=== PATIENT | female | born 1990 | race Caucasian/White ===

== ENCOUNTER 2016-06-19 16:16 | Emergency (ER) | payer OTHER ==
[~2016-06-19] VITALS: Wt 45.4 kg
[~2016-06-19 16:16] MED LIST: ANAPROX DS550 MG PO; ANTIBIOTIC O500 U/GM TP; AUGMENTIN 500 M1 TAB PO; AUGMENTIN 875-875 MG PO; BACTRIM DS 8001 TA1 PO; CATAFLAM50 MG PO; CIPROFLOXACIN500 MG PO; CLEOCIN HCL150 MG PO; CLEOCIN150 MG PO; Catapres-Tts 10.1 MG PO; DARVOCET N 1001 TAB PO; DAYPRO600 M1 PO; DOXYCYCLINE MO100 MG PO; HYDROCODONE BIT1 T11 PO; IBU600 MG PO; KEFLEX500 MG PO; MOTRIN600 MG PO; MOTRIN800 MG PO; NKHM; Peridex 473 ML473 ML PO; SEPTRA DS 800 M1 TAB PO; TRAMADOL HCL50 MG PO; VICODIN 5/500 505 MG PO; ZOFRAN4 MG PO; Zofran4 MG PO
[2016-06-19] MEDS ORDERED: ARTHRITIS PAI42.5 GM TP (16:22)
[2016-06-19] MEDS ORDERED: TYLENOL325 M1 PO (16:22)
[2016-06-19] MEDS ORDERED: SEROQUEL100 MG PO (16:22)
[2016-06-19] MEDS ORDERED: TEFLARO600 MG IV (16:23)
[2016-06-19 16:41] LABS: BASO # 0.1 10*3/uL (0.0-0.1); BASO % 0.5 % (0.0-1.0); EOS # 0.6 10*3/uL (0.0-0.4); EOS % 3.1 % (1.0-4.0); HEMATOCRIT 24.5 % (37.0-47.0); HEMOGLOBIN 7.5 g/dl (12.0-16.0); IG # 0.3 10*3/uL (0.0-0.1); LYMPH # 3.2 10*3/uL (1.3-4.4); LYMPH % 18.2 % (27.0-41.0); MEAN CELL VOLUME 94.2 fl (81.0-99.0); MEAN CORPUSCULAR HGB 28.8 pg (27.0-31.0); MEAN CORPUSCULAR HGB CONC 30.6 g/dl (33.0-37.0); MEAN PLATELET VOLUME 10.4 fl (9.6-12.3); MONO # 1.3 10*3/uL (0.1-1.0); MONO % 7.3 % (3.0-9.0); NEUT # 12.2 10*3/uL (2.3-7.9); NEUT % 69.3 % (47.0-73.0); PLATELET COUNT AUTOMATED 221 10*3/uL (130-400); RED CELL DISTRI WIDTH 18.3 % (0-14.5); WHITE BLOOD COUNT 17.6 10*3/uL (4.8-10.8)
[2016-06-19 17:01] LABS: BILIRUBIN NEGATIVE (NEGATIVE); BLOOD 3+ (NEGATIVE); CLARITY SL CLOUDY (CLEAR); COLOR YELLOW (YELLOW); GLUCOSE TRACE (NEGATIVE); KETONE NEGATIVE (NEGATIVE); LEUKO ESTERASE NEGATIVE (NEGATIVE); NITRITE NEGATIVE (NEGATIVE); PH 5.5 (5.0-9.0); PROTEIN 2+ (NEGATIVE); SPECIFIC GRAVITY >= 1.030 (1.005-1.030); UROBILINOGEN 0.2 E.U./dl (0.2-1.0)
[2016-06-19 17:02] LABS: ALBUMIN 2.7 gm/dl (3.1-4.5); BILIRUBIN, TOTAL 0.3 mg/dl (0.2-1.0); BUN 28 mg/dl (7-24); CARBON DIOXIDE 18 mmol/L (21-32); CHLORIDE 109 mmol/L (98-107); EST GLOM FILT AFRICAN AMERICAN > 60 ml/min; GLUCOSE 121 mg/dL (65-99); MAGNESIUM 1.9 mg/dL (1.5-2.1); POTASSIUM 4.5 mmol/L (3.5-5.1); SGOT/AST 15 IU/L (3-35); SGPT/ALT 19 U/L (12-78); SODIUM 140 mmol/L (136-145); TOTAL PROTEIN 8.2 gm/dL (6.4-8.2)
[2016-06-19 17:03] LABS: ALKALINE PHOSPHATASE 122 U/L (45-117); TROPONIN I < 0.015 ng/ml (<0.045)
[2016-06-19 17:18] LABS: URINE AMPHETAMINES < 1000 (1000ng/ml); URINE BARBITURATES < 200 (200ng/ml); URINE COCAINE > 300 (300ng/ml)
[2016-06-19 17:23] LABS: RBC 16-20 rbc/hpf (0-2)
[2016-06-19 17:24] LABS: BACTERIA 1+; URINE REFLEX COMMENT YES (NO); WBC 16-20 wbc/hpf (0-5); YEAST 3+
[2016-06-20] MEDS ORDERED: CYMBALTA60 MG PO (16:16)
[2016-06-20] MEDS ORDERED: DULCOLAX10 M1 RC (16:17)
[2016-06-20] MEDS ORDERED: VITAMIN D5000 I3 PO (16:18)
[2016-06-20] MEDS ORDERED: FLEET ADULT ENEM1 EA R (16:19)
[2016-06-20] MEDS ORDERED: NEURONTIN300 MG PO (16:20)
[2016-06-20] MEDS ORDERED: CYCLOBENZAPRINE5 M3 PO (16:20)
[2016-06-20] MEDS ORDERED: LOPRESSOR25 MG PO (16:21)
[2016-06-20] MEDS ORDERED: MICONAZOLE1 POW ×2 (16:22→16:25)
[2016-06-20] MEDS ORDERED: MOM30 M1 PO (16:26)
[2016-06-20] MEDS ORDERED: NAPROXEN375 MG PO (16:29)
== END 2016-06-19 17:44 | disposition other institution (70) ==
LOC: ED 16:16
PROVIDERS: Nurse Practitioner Family
DX: T40.1X1A Poisoning by heroin, accidental (unintentional), initial encounter (principal); F14.90 Cocaine use, unspecified, uncomplicated; F17.200 Nicotine dependence, unspecified, uncomplicated; Z98.890 Other specified postprocedural states; Z79.899 Other long term (current) drug therapy; Z88.6 Allergy status to analgesic agent; Y92.9 Unspecified place or not applicable

== ENCOUNTER → 2016-06-20 | Outpatient (CLI) | payer OTHER ==
[2016-06-20] VITALS (8 sets, daily range): BP systolic 130–158; BP diastolic 78–88
[~2016-06-20] MED LIST changes: +ARTHRITIS PAI42.5 GM TP; +CYCLOBENZAPRINE5 M3 PO; +CYMBALTA60 MG PO; +DULCOLAX10 M1 RC; +FLEET ADULT ENEM1 EA R; +LOPRESSOR25 MG PO; +MICONAZOLE1 POW; +MOM30 M1 PO; +NAPROXEN375 MG PO; +NEURONTIN300 MG PO; +SEROQUEL100 MG PO; +TEFLARO600 MG IV; +TYLENOL325 M1 PO; +VITAMIN D5000 I3 PO
== END | disposition home or self-care (01) ==
LOC: TRNFUSION 11:47
DX: R79.89 Other specified abnormal findings of blood chemistry (principal); D63.8 Anemia in other chronic diseases classified elsewhere

== ENCOUNTER 2016-08-08 21:40 | Inpatient (IN) | payer OTHER ==
[2016-08-08] VITALS (11 sets, daily range): BP systolic 58–81; BP diastolic 0–44
[~2016-08-08] VITALS: Ht 152.4 cm; Wt 49.4 kg
[2016-08-08 22:56] LABS: HEMATOCRIT 34.4 % (37.0-47.0); HEMOGLOBIN 11.4 g/dl (12.0-16.0); MEAN CELL VOLUME 84.1 fl (81.0-99.0); MEAN CORPUSCULAR HGB 27.9 pg (27.0-31.0); MEAN CORPUSCULAR HGB CONC 33.1 g/dl (33.0-37.0); PLATELET COUNT AUTOMATED 51 10*3/uL (130-400); RED BLOOD COUNT 4.09 10*6/uL (4.10-5.10); RED CELL DISTRI WIDTH 15.4 % (0-14.5); WHITE BLOOD COUNT 19.6 10*3/uL (4.8-10.8)
[2016-08-08 23:05] LABS: INTERNATIONAL NORM RATIO 1.6 (2.0-3.5); PROTHROMBIN TIME 17.4 SECONDS (9.0-12.4)
[2016-08-08 23:16] LABS: ALKALINE PHOSPHATASE 109 U/L (45-117); B-hCG (QUALITATIVE) NEGATIVE (NEGATIVE); BILIRUBIN, TOTAL 1.7 mg/dl (0.2-1.0); BUN 41 mg/dl (7-24); CARBON DIOXIDE 19 mmol/L (21-32); CHLORIDE 99 mmol/L (98-107); EST GLOM FILT AFRICAN AMERICAN 28 ml/min; GLUCOSE 108 mg/dL (65-99); MAGNESIUM 1.3 mg/dL (1.5-2.1); POTASSIUM 3.5 mmol/L (3.5-5.1); SGOT/AST 22 IU/L (3-35); SGPT/ALT 42 U/L (12-78); SODIUM 131 mmol/L (136-145); TOTAL PROTEIN 7.2 gm/dL (6.4-8.2)
[2016-08-08 23:17] LABS: TROPONIN I < 0.015 ng/ml (<0.045)
[2016-08-08 23:21] LABS: LYMPHOCYTE # 0.4 10*3/uL (1.3-4.4); METAMYELOCYTES 1 % (0-0); MONOCYTE # 0.8 10*3/uL (0.1-1.0); NEUTROPHIL # 18.2 10*3/uL (2.3-7.9); NEUTROPHILS 93 % (47-73); TOTAL CELLS COUNTED 100 #CELLS
[2016-08-08 23:22] LABS: VACUOLATION OF NEUTROPHILS SLIGHT
[2016-08-08 23:23] LABS: PLATELET SUFFICIENCY LOW (NORMAL)
[2016-08-08 23:35] LABS: ALBUMIN 2.7 gm/dl (3.1-4.5)
[2016-08-08] MEDS ORDERED: NEURONTIN100 MG PO (23:41)
[2016-08-08] MEDS ORDERED: LEVOTHYROXINE0.05 MG PO (23:43)
[2016-08-08] MEDS ORDERED: AMRIX15 MG PO (23:43)
[2016-08-08] MEDS ORDERED: METHADONE HCL10 MG PO (23:43)
[2016-08-08 23:55] LABS: BILIRUBIN 1+ (NEGATIVE); BLOOD 3+ (NEGATIVE); CLARITY CLOUDY (CLEAR); COLOR YELLOW (YELLOW); GLUCOSE NEGATIVE (NEGATIVE); KETONE TRACE (NEGATIVE); LEUKO ESTERASE 2+ (NEGATIVE); NITRITE NEGATIVE (NEGATIVE); PROTEIN 3+ (NEGATIVE); SPECIFIC GRAVITY 1.025 (1.005-1.030); UROBILINOGEN 0.2 E.U./dl (0.2-1.0)
[2016-08-08 23:57] LABS: BACTERIA 4+; EPITHELIAL CELLS 0-2; URINE REFLEX COMMENT YES (NO)
[2016-08-09] VITALS (30 sets, daily range): BP systolic 58–143; BP diastolic 0–88
[2016-08-09 00:15] LABS: URINE AMPHETAMINES < 1000 (1000ng/ml); URINE BARBITURATES < 200 (200ng/ml); URINE COCAINE < 300 (300ng/ml)
[2016-08-09 00:52] LABS: LA>2 REFLEX 2 HR DRAW NOW
[2016-08-09 07:09] LABS: HEMATOCRIT 31.3 % (37.0-47.0); HEMOGLOBIN 10.5 g/dl (12.0-16.0); MEAN CELL VOLUME 85.3 fl (81.0-99.0); MEAN CORPUSCULAR HGB 28.6 pg (27.0-31.0); MEAN CORPUSCULAR HGB CONC 33.5 g/dl (33.0-37.0); MEAN PLATELET VOLUME 10.9 fl (9.6-12.3); PLATELET COUNT AUTOMATED 38 10*3/uL (130-400); RED BLOOD COUNT 3.67 10*6/uL (4.10-5.10); RED CELL DISTRI WIDTH 15.4 % (0-14.5); WHITE BLOOD COUNT 14.8 10*3/uL (4.8-10.8)
[2016-08-09 07:17] LABS: POTASSIUM 3.2 mmol/L (3.5-5.1)
[2016-08-09 07:25] LABS: LYMPHOCYTE # 0.1 10*3/uL (1.3-4.4); METAMYELOCYTES 2 % (0-0); MONOCYTE # 0.7 10*3/uL (0.1-1.0); NEUTROPHIL # 13.6 10*3/uL (2.3-7.9); NEUTROPHILS 92 % (47-73); TOTAL CELLS COUNTED 100 #CELLS
[2016-08-09 07:26] LABS: BURR CELLS FEW; PLATELET SUFFICIENCY LOW (NORMAL); TOXIC GRANULATION SLIGHT; VACUOLATION OF NEUTROPHILS MODERATE
[2016-08-09 13:33] LABS: LDH 239 U/L (84-246)
[2016-08-09 13:35] LABS: CKMB < 0.5 ng/ml (0.5-3.6); TROPONIN I < 0.015 ng/ml (<0.045)
[2016-08-12 00:04] LABS: FINAL RESULT Final report (.)
== END 2016-08-09 14:31 | disposition short-term general hospital (02) | DRG 871 ==
LOC: ED 21:40 → EDHOLD 08-09 08:09 → ICCU 08-09 08:09
PROVIDERS: Emergency Medicine Emergency Medical Services; Internal Medicine
DX: A41.89 Other specified sepsis (principal); R65.21 Severe sepsis with septic shock; N17.0 Acute kidney failure with tubular necrosis; E43 Unspecified severe protein-calorie malnutrition; A04.7 Enterocolitis due to Clostridium difficile; R56.9 Unspecified convulsions; I38 Endocarditis, valve unspecified; F11.20 Opioid dependence, uncomplicated; R34 Anuria and oliguria; E87.1 Hypo-osmolality and hyponatremia; D64.9 Anemia, unspecified; G62.9 Polyneuropathy, unspecified; G89.29 Other chronic pain; E03.9 Hypothyroidism, unspecified; R73.9 Hyperglycemia, unspecified; E83.42 Hypomagnesemia; E87.6 Hypokalemia; Z90.49 Acquired absence of other specified parts of digestive tract; Z88.6 Allergy status to analgesic agent; Z79.899 Other long term (current) drug therapy; Z79.1 Long term (current) use of non-steroidal anti-inflammatories (NSAID); Z68.20 Body mass index [BMI] 20.0-20.9, adult

== ENCOUNTER → 2016-10-18 | Outpatient (CLI) | payer OTHER ==
[~2016-10-18] MED LIST changes: +AMRIX15 MG PO; +LEVOTHYROXINE0.05 MG PO; +METHADONE HCL10 MG PO; +NEURONTIN100 MG PO
== END | disposition home or self-care (01) ==
LOC: CARD 16:00 → LAB 16:04
DX: R78.81 Bacteremia (principal); R76.8 Other specified abnormal immunological findings in serum

== ENCOUNTER → 2016-10-27 | Outpatient (CLI) | payer OTHER | END | disposition home or self-care (01) | LOC: LAB 16:12 | DX: Z53.9 Procedure and treatment not carried out, unspecified reason (principal) ==

== ENCOUNTER → 2016-11-15 | Outpatient (CLI) | payer OTHER | END | disposition home or self-care (01) | LOC: LAB 12:09 | DX: R78.81 Bacteremia (principal); R76.8 Other specified abnormal immunological findings in serum ==

== ENCOUNTER 2017-01-07 20:18 | Emergency (ER) | payer OTHER ==
[~2017-01-07] VITALS: Wt 51.3 kg
[2017-01-07 20:36] LABS: BILIRUBIN NEGATIVE (NEGATIVE); BLOOD 3+ (NEGATIVE); CLARITY SL CLOUDY (CLEAR); COLOR YELLOW (YELLOW); GLUCOSE NEGATIVE (NEGATIVE); KETONE NEGATIVE (NEGATIVE); LEUKO ESTERASE TRACE (NEGATIVE); NITRITE NEGATIVE (NEGATIVE); SPECIFIC GRAVITY >= 1.030 (1.005-1.030)
[2017-01-07 20:48] LABS: BACTERIA 2+; RBC 31-40 rbc/hpf (0-2)
[2017-01-07 21:16] LABS: ALBUMIN 3.6 gm/dl (3.1-4.5); ALKALINE PHOSPHATASE 87 U/L (45-117); BUN 17 mg/dl (7-24); CHLORIDE 110 mmol/L (98-107); CREATININE 0.88 mg/dL (0.55-1.02); LIPASE 134 U/L (73-393); POTASSIUM 4.4 mmol/L (3.5-5.1); SGOT/AST 23 IU/L (3-35); SGPT/ALT 23 U/L (12-78); SODIUM 140 mmol/L (136-145); TOTAL PROTEIN 7.9 gm/dL (6.4-8.2)
[2017-01-07] MEDS ORDERED: MACROBID100 M1 PO (21:39)
== END 2017-01-07 21:42 | disposition home or self-care (01) ==
LOC: ED 20:18
PROVIDERS: Physician Assistant
DX: O23.41 Unspecified infection of urinary tract in pregnancy, first trimester (principal); Z91.09 Other allergy status, other than to drugs and biological substances; Z95.2 Presence of prosthetic heart valve; Z90.49 Acquired absence of other specified parts of digestive tract; Z96.612 Presence of left artificial shoulder joint; Z96.611 Presence of right artificial shoulder joint; O99.330 Smoking (tobacco) complicating pregnancy, unspecified trimester; F17.200 Nicotine dependence, unspecified, uncomplicated

== ENCOUNTER 2017-06-06 05:02 | Emergency (ER) | payer OTHER ==
[~2017-06-06] VITALS: Ht 152.4 cm; Wt 52.2 kg
[~2017-06-06 05:02] MED LIST changes: +MACROBID100 M1 PO
== END 2017-06-06 05:45 | disposition home or self-care (01) ==
LOC: ED 05:02
DX: Z20.2 Contact with and (suspected) exposure to infections with a predominantly sexual mode of transmission (principal); F17.200 Nicotine dependence, unspecified, uncomplicated; F10.10 Alcohol abuse, uncomplicated; R73.9 Hyperglycemia, unspecified; E83.42 Hypomagnesemia; I95.9 Hypotension, unspecified; E87.1 Hypo-osmolality and hyponatremia; E03.9 Hypothyroidism, unspecified; Z90.49 Acquired absence of other specified parts of digestive tract

== ENCOUNTER 2017-09-16 14:28 | Emergency (ER) | payer OTHER ==
[~2017-09-16] VITALS: Ht 152.4 cm; Wt 49.9 kg
[2017-09-16] MEDS ORDERED: NAPROSYN500 MG PO (14:56)
[2017-09-16] MEDS ORDERED: SEPTDS PO (14:56)
== END 2017-09-16 15:01 | disposition home or self-care (01) ==
LOC: ED 14:28
DX: L02.11 Cutaneous abscess of neck (principal); K08.89 Other specified disorders of teeth and supporting structures; Z88.6 Allergy status to analgesic agent; Z79.899 Other long term (current) drug therapy

== ENCOUNTER → 2018-04-03 | Outpatient (CLI) | payer OTHER ==
[~2018-04-03] MED LIST changes: +NAPROSYN500 MG PO; +SEPTDS PO
[2018-04-03 14:36] LABS: BASO % 0.3 % (0.0-1.0); EOS # 0.5 10*3/uL (0.0-0.4); EOS % 4.8 % (1.0-4.0); HEMATOCRIT 43.7 % (37.0-47.0); HEMOGLOBIN 14.4 g/dl (12.0-16.0); LYMPH # 2.6 10*3/uL (1.3-4.4); LYMPH % 24.2 % (27.0-41.0); MEAN CELL VOLUME 89.7 fl (81.0-99.0); MEAN CORPUSCULAR HGB 29.6 pg (27.0-31.0); MEAN PLATELET VOLUME 10.5 fl (9.6-12.3); MONO # 0.6 10*3/uL (0.1-1.0); MONO % 5.7 % (3.0-9.0); NEUT # 6.9 10*3/uL (2.3-7.9); NEUT % 64.8 % (47.0-73.0); PLATELET COUNT AUTOMATED 218 10*3/uL (130-400); RED BLOOD COUNT 4.87 10*6/uL (4.10-5.10); RED CELL DISTRI WIDTH 13.2 % (0-14.5); WHITE BLOOD COUNT 10.6 10*3/uL (4.8-10.8)
[2018-04-03 15:05] LABS: ALBUMIN 3.6 gm/dl (3.1-4.5); ALKALINE PHOSPHATASE 92 U/L (45-117); BUN 20 mg/dl (7-24); CHLORIDE 103 mmol/L (98-107); CREATININE 0.91 mg/dL (0.55-1.02); POTASSIUM 4.8 mmol/L (3.5-5.1); SGOT/AST 29 IU/L (3-35); SGPT/ALT 42 U/L (12-78); SODIUM 137 mmol/L (136-145); TOTAL PROTEIN 8.2 gm/dL (6.4-8.2)
== END | disposition home or self-care (01) ==
LOC: LAB 14:00
PROVIDERS: Internal Medicine Cardiovascular Disease
DX: I36.8 Other nonrheumatic tricuspid valve disorders (principal); R06.02 Shortness of breath

== ENCOUNTER → 2018-11-16 | Outpatient (CLI) | payer OTHER | END | disposition home or self-care (01) | LOC: CARD 11-13 13:00 | DX: I07.1 Rheumatic tricuspid insufficiency (principal); Z95.4 Presence of other heart-valve replacement ==

== ENCOUNTER 2020-01-22 16:36 | Inpatient (IN) | payer OTHER ==
[~2020-01-22] VITALS: Ht 152.4 cm; Wt 50.9 kg
[2020-01-22 16:50] VITALS: BP 140/92
[2020-01-22 17:14] LABS: BILIRUBIN Negative (Negative); BLOOD Negative (Negative); CLARITY Cloudy (Clear); COLOR Yellow (Yellow); GLUCOSE Negative (Negative); KETONE Negative (Negative); LEUKO ESTERASE 1+ (Negative); NITRITE Positive (Negative)
[2020-01-22 17:23] LABS: BACTERIA 4+; CALCIUM OXALATE CRYSTALS 1+; EPITHELIAL CELLS 31-40; RBC 0-2 rbc/hpf (0-2); URINE AMPHETAMINES < 1000 (1000ng/ml); URINE BARBITURATES < 200 (200ng/ml); URINE BENZODIAZEPINES < 200 (200ng/ml); URINE CANNABINOIDS (THC) < 50 (50ng/ml); URINE COCAINE > 300 (300ng/ml); URINE METHADONE < 300 (300ng/ml); URINE OPIATES < 300 (300ng/ml); WBC 21-30 wbc/hpf (0-5)
[2020-01-22 17:25] LABS: URINE PHENCYCLIDINE < 25 (25ng/ml)
[2020-01-22 17:33] LABS: BASO % 0.3 % (0.0-1.0); EOS # 0.3 10*3/uL (0.0-0.4); EOS % 2.8 % (1.0-4.0); HEMATOCRIT 37.5 % (37.0-47.0); LYMPH # 2.4 10*3/uL (1.3-4.4); MEAN CELL VOLUME 87.6 fl (81.0-99.0); MEAN CORPUSCULAR HGB 28.3 pg (27.0-31.0); MEAN CORPUSCULAR HGB CONC 32.3 g/dl (33.0-37.0); MEAN PLATELET VOLUME 10.6 fl (9.6-12.3); MONO # 0.8 10*3/uL (0.1-1.0); MONO % 7.5 % (3.0-9.0); NEUT # 7.3 10*3/uL (2.3-7.9); NEUT % 67.1 % (47.0-73.0); PLATELET COUNT AUTOMATED 234 10*3/uL (130-400); RED BLOOD COUNT 4.28 10*6/uL (4.10-5.10); RED CELL DISTRI WIDTH 13.7 % (0-14.5); WHITE BLOOD COUNT 10.9 10*3/uL (4.8-10.8)
[2020-01-22 17:42] LABS: INTERNATIONAL NORM RATIO 1.1 (2.0-3.5)
[2020-01-22 17:50] LABS: ALBUMIN 3.3 gm/dl (3.1-4.5); ALKALINE PHOSPHATASE 93 U/L (45-117); BUN 12 mg/dl (7-24); CHLORIDE 108 mmol/L (98-107); CREATININE 0.78 mg/dL (0.55-1.02); POTASSIUM 3.4 mmol/L (3.5-5.1); SGOT/AST 47 IU/L (3-35); SGPT/ALT 93 U/L (12-78); SODIUM 142 mmol/L (136-145); TOTAL PROTEIN 7.5 gm/dL (6.4-8.2)
[2020-01-22 17:54] LABS: ACETAMINOPHEN (TYLENOL) < 5.0 ug/ml (10-30); ETHYL ALCOHOL < 3.0 mg/dl (<3); TROPONIN I < 0.015 ng/ml (<0.045)
[2020-01-22 20:09] VITALS: BP 111/75
[2020-01-22 20:15] VITALS: BP 127/69
[2020-01-22] MEDS ORDERED: VENT7GM INH (20:50)
[2020-01-23] VITALS: BP 114/80
[2020-01-23 08:00] VITALS: BP 110/66
[2020-01-23 08:10] VITALS: BP 108/70
[2020-01-23 12:00] VITALS: BP 128/74
[2020-01-23 16:00] VITALS: BP 130/70
[2020-01-23 20:00] VITALS: BP 123/86
[2020-01-24] VITALS: BP 121/71
[2020-01-24 08:00] VITALS: BP 112/74; BP 85/61
[2020-01-24 12:00] VITALS: BP 112/74
[2020-01-24 16:00] VITALS: BP 123/84
[2020-01-24 20:00] VITALS: BP 153/76
[2020-01-25] VITALS: BP 164/90
[2020-01-25 08:00] VITALS: BP 138/68
[2020-01-25 12:00] VITALS: BP 132/74
== END 2020-01-25 14:13 | disposition home or self-care (01) | DRG 773 ==
LOC: ED 16:36 → 4E 18:46 → EDHOLD 18:46 → 4E 20:02
PROVIDERS: Physician Assistant; ADMIT Internal Medicine; ATTEND Internal Medicine
DX: F11.23 Opioid dependence with withdrawal (principal); F14.10 Cocaine abuse, uncomplicated; F17.210 Nicotine dependence, cigarettes, uncomplicated; B18.2 Chronic viral hepatitis C; R74.01 Elevation of levels of liver transaminase levels; D72.829 Elevated white blood cell count, unspecified; E87.6 Hypokalemia; E87.8 Other disorders of electrolyte and fluid balance, not elsewhere classified; E03.9 Hypothyroidism, unspecified; F41.9 Anxiety disorder, unspecified; I10 Essential (primary) hypertension; B96.20 Unspecified Escherichia coli [E. coli] as the cause of diseases classified elsewhere; N30.00 Acute cystitis without hematuria; J45.909 Unspecified asthma, uncomplicated; Z88.6 Allergy status to analgesic agent; Z90.49 Acquired absence of other specified parts of digestive tract; Z98.891 History of uterine scar from previous surgery; Z80.8 Family history of malignant neoplasm of other organs or systems

== ENCOUNTER 2021-03-28 14:26 | Emergency (ER) | payer OTHER ==
[~2021-03-28] VITALS: Ht 172.7 cm; Wt 61.2 kg
[~2021-03-28 14:26] MED LIST changes: +VENT7GM INH
[2021-03-28 15:05] LABS: BASO % 0.3 % (0.0-1.0); EOS # 0.1 10*3/uL (0.0-0.4); EOS % 0.9 % (1.0-4.0); HEMATOCRIT 43.2 % (37.0-47.0); LYMPH % 10.2 % (27.0-41.0); MEAN CELL VOLUME 93.9 fl (81.0-99.0); MEAN CORPUSCULAR HGB 30.4 pg (27.0-31.0); MEAN CORPUSCULAR HGB CONC 32.4 g/dl (33.0-37.0); MONO # 0.8 10*3/uL (0.1-1.0); MONO % 7.4 % (3.0-9.0); NEUT # 8.2 10*3/uL (2.3-7.9); NEUT % 80.8 % (47.0-73.0); PLATELET COUNT AUTOMATED 182 10*3/uL (130-400); RED CELL DISTRI WIDTH 12.7 % (0-14.5); WHITE BLOOD COUNT 10.1 10*3/uL (4.8-10.8)
[2021-03-28 15:20] LABS: ALBUMIN 3.5 gm/dl (3.1-4.5); ALKALINE PHOSPHATASE 52 U/L (45-117); BUN 22 mg/dl (7-24); CHLORIDE 108 mmol/L (98-107); CREATININE 1.02 mg/dL (0.55-1.02); POTASSIUM 3.1 mmol/L (3.5-5.1); SGOT/AST 161 IU/L (3-35); SGPT/ALT 146 U/L (12-78); SODIUM 138 mmol/L (136-145); TOTAL PROTEIN 7.5 gm/dL (6.4-8.2)
[2021-03-28 15:20] LABS: BILIRUBIN Negative (Negative); BLOOD 2+ (Negative); CLARITY Cloudy (Clear); COLOR Yellow (Yellow); GLUCOSE Negative (Negative); KETONE Negative (Negative); LEUKO ESTERASE Negative (Negative); NITRITE Negative (Negative)
[2021-03-28 15:22] LABS: ETHYL ALCOHOL < 3.0 mg/dl (<3)
[2021-03-28 15:34] LABS: BACTERIA 2+; EPITHELIAL CELLS 21-30
[2021-03-28 15:41] LABS: URINE AMPHETAMINES > 1000 (1000ng/ml); URINE BARBITURATES < 200 (200ng/ml); URINE BENZODIAZEPINES < 200 (200ng/ml); URINE CANNABINOIDS (THC) < 50 (50ng/ml); URINE COCAINE > 300 (300ng/ml); URINE METHADONE < 300 (300ng/ml); URINE OPIATES < 300 (300ng/ml)
[2021-03-28 15:45] LABS: URINE PHENCYCLIDINE < 25 (25ng/ml)
== END 2021-03-28 18:30 | disposition home or self-care (01) ==
LOC: ED 14:26
PROVIDERS: Emergency Medicine
DX: T40.601A Poisoning by unspecified narcotics, accidental (unintentional), initial encounter (principal); F19.10 Other psychoactive substance abuse, uncomplicated; F12.90 Cannabis use, unspecified, uncomplicated; F15.90 Other stimulant use, unspecified, uncomplicated; F11.90 Opioid use, unspecified, uncomplicated; Y92.89 Other specified places as the place of occurrence of the external cause

== ENCOUNTER 2022-06-13 09:16 | Emergency (ER) | payer OTHER ==
[~2022-06-13] VITALS: Ht 160 cm; Wt 52.2 kg
== END 2022-06-13 09:59 ==
LOC: ED → EDBD 09:17 → ED 09:17
DX: F15.10 Other stimulant abuse, uncomplicated (principal); Z90.89 Acquired absence of other organs; Z98.890 Other specified postprocedural states; F17.210 Nicotine dependence, cigarettes, uncomplicated; Z88.6 Allergy status to analgesic agent

== ENCOUNTER → 2022-06-13 | Emergency (ER) | payer OTHER | LOC: ED 11:07 | DX: Z53.21 Procedure and treatment not carried out due to patient leaving prior to being seen by health care provider (principal) ==

== ENCOUNTER 2022-10-12 08:15 | Emergency (ER) | payer OTHER ==
[~2022-10-12] VITALS: Ht 152.4 cm; Wt 62.1 kg
[2022-10-12] MEDS ORDERED: BUSPAR15 MG PO (08:25)
[2022-10-12] MEDS ORDERED: TRAZODONE50 MG PO (08:26)
[2022-10-12 09:48] LABS: BILIRUBIN 1+ (Negative); BLOOD Negative (Negative); CLARITY Cloudy (Clear); COLOR Dark Yellow (Yellow); GLUCOSE Negative (Negative); KETONE Trace (Negative); LEUKO ESTERASE 1+ (Negative); NITRITE Negative (Negative); PH 5.5 (4.5-8.0); SPECIFIC GRAVITY >= 1.030 (1.001-1.030)
[2022-10-12 10:02] LABS: MUCOUS 1+
[2022-10-12 10:03] LABS: BACTERIA 1+
[2022-10-12] MEDS ORDERED: VIBRA-TAB100 MG PO (10:07)
== END 2022-10-12 10:26 | disposition home or self-care (01) ==
LOC: ED 08:15
PROVIDERS: Emergency Medicine
DX: J02.9 Acute pharyngitis, unspecified (principal); L03.112 Cellulitis of left axilla; Z20.2 Contact with and (suspected) exposure to infections with a predominantly sexual mode of transmission; Z79.899 Other long term (current) drug therapy; Z88.8 Allergy status to other drugs, medicaments and biological substances; Z90.49 Acquired absence of other specified parts of digestive tract; Z90.89 Acquired absence of other organs; Z98.890 Other specified postprocedural states; F17.200 Nicotine dependence, unspecified, uncomplicated; F19.10 Other psychoactive substance abuse, uncomplicated

== ENCOUNTER 2023-09-08 06:24 | Emergency (ER) | payer MEDICAID ==
[~2023-09-08] VITALS: Wt 56.2 kg
[~2023-09-08 06:24] MED LIST changes: +BUSPAR15 MG PO; +TRAZODONE50 MG PO; +VIBRA-TAB100 MG PO
[2023-09-08] MEDS ORDERED: AMOX-CLAV 875-1 EACH PO (06:45)
[2023-09-08] MEDS ORDERED: ACETAMINOPHEN 325 MG TAB PO ONE (06:45)
[2023-09-08] MEDS ORDERED: Rabies Immune Globulin 300 UNIT/2 ML VIAL IM ONE (06:45)
[2023-09-08] MEDS ORDERED: Rabies Vaccine 1 ML VIAL IM ONE (06:45)
== END 2023-09-08 07:05 | disposition home or self-care (01) ==
LOC: ED 06:24
DX: S71.151A Open bite, right thigh, initial encounter (principal); F17.200 Nicotine dependence, unspecified, uncomplicated; F19.10 Other psychoactive substance abuse, uncomplicated; Z88.8 Allergy status to other drugs, medicaments and biological substances; Z90.89 Acquired absence of other organs; Z90.49 Acquired absence of other specified parts of digestive tract; Z98.890 Other specified postprocedural states; W54.0XXA Bitten by dog, initial encounter; Y93.89 Activity, other specified; Y92.89 Other specified places as the place of occurrence of the external cause; Y99.8 Other external cause status

== ENCOUNTER 2024-03-04 21:07 | Emergency (ER) | payer OTHER ==
[~2024-03-04] VITALS: Ht 167.6 cm; Wt 60.6 kg
[~2024-03-04 21:07] MED LIST changes: +AMOX-CLAV 875-1 EACH PO
== END 2024-03-04 21:26 | disposition left against medical advice (07) ==
LOC: ED 21:07
DX: O9A.219 Injury, poisoning and certain other consequences of external causes complicating pregnancy, unspecified trimester (principal); T40.1X1A Poisoning by heroin, accidental (unintentional), initial encounter; T40.711A Poisoning by cannabis, accidental (unintentional), initial encounter; Z53.29 Procedure and treatment not carried out because of patient's decision for other reasons; F17.200 Nicotine dependence, unspecified, uncomplicated; F19.10 Other psychoactive substance abuse, uncomplicated; Z88.5 Allergy status to narcotic agent; Z90.49 Acquired absence of other specified parts of digestive tract; Z98.890 Other specified postprocedural states; Z90.89 Acquired absence of other organs; Y92.89 Other specified places as the place of occurrence of the external cause

== ENCOUNTER 2024-06-04 01:46 | Emergency (ER) | payer OTHER ==
[~2024-06-04] VITALS: Ht 152.4 cm; Wt 54.4 kg
[2024-06-04] MEDS ORDERED: ACETAMINOPHEN 325 MG TAB PO ONE (03:00)
== END 2024-06-04 03:42 | disposition home or self-care (01) ==
LOC: ED 01:46
DX: O9A.219 Injury, poisoning and certain other consequences of external causes complicating pregnancy, unspecified trimester (principal); S90.32XA Contusion of left foot, initial encounter; F17.200 Nicotine dependence, unspecified, uncomplicated; F19.10 Other psychoactive substance abuse, uncomplicated; Z88.5 Allergy status to narcotic agent; Z90.49 Acquired absence of other specified parts of digestive tract; Z98.890 Other specified postprocedural states; Z90.89 Acquired absence of other organs; W22.8XXA Striking against or struck by other objects, initial encounter; Y93.89 Activity, other specified; Y92.009 Unspecified place in unspecified non-institutional (private) residence as the place of occurrence of the external cause; Y99.8 Other external cause status

== ENCOUNTER 2024-10-10 09:55 | Emergency (ER) | payer OTHER ==
[~2024-10-10] VITALS: Ht 152.4 cm; Wt 60.8 kg
[2024-10-10 10:42] LABS: BASO # 0.0 10*3/uL (0.0-0.1); BASO % 0.2 % (0.0-1.0); EOS # 0.1 10*3/uL (0.0-0.4); EOS % 0.8 % (1.0-4.0); MEAN CELL VOLUME 88.0 fl (81.0-99.0); MEAN CORPUSCULAR HGB 30.1 pg (27.0-31.0); MEAN PLATELET VOLUME 10.5 fl (9.6-12.3); MONO # 1.0 10*3/uL (0.1-1.0); MONO % 6.4 % (3.0-9.0); NEUT # 12.8 10*3/uL (2.3-7.9); NEUT % 79.6 % (47.0-73.0); NUCLEATED RED BLOOD CELL 0.0 % (0.0-0.0); NUCLEATED RED BLOOD CELL 0.0 10*3/uL (0.0-0.0); PLATELET COUNT AUTOMATED 174 10*3/uL (130-400); RED CELL DISTRI WIDTH 13.7 % (0-14.5)
[2024-10-10 11:01] LABS: BUN 13 mg/dl (9-23)
[2024-10-10] MEDS ORDERED: CEPHALEXIN500 M1 PO (11:11)
[2024-10-10] MEDS ORDERED: SILVER NITRATE APPLICATOR 1 EACH APP T ONE (11:15)
[2024-10-10 11:31] LABS: BILIRUBIN Negative (Negative); BLOOD Negative (Negative); CLARITY Clear (Clear); COLOR Yellow (Yellow); KETONE Negative (Negative); LEUKO ESTERASE 1+ (Negative); NITRITE Negative (Negative); PH 6.0 (4.5-8.0); SPECIFIC GRAVITY 1.020 (1.001-1.030); UROBILINOGEN 0.2 E.U./dl (0.0-1.0)
[2024-10-10 11:52] LABS: BACTERIA 1+; EPITHELIAL CELLS TNTC; WBC 16-20 wbc/hpf (0-5)
== END 2024-10-10 11:41 | disposition home or self-care (01) ==
LOC: ED 09:55
PROVIDERS: Internal Medicine
DX: I83.91 Asymptomatic varicose veins of right lower extremity (principal); F17.210 Nicotine dependence, cigarettes, uncomplicated; Z88.8 Allergy status to other drugs, medicaments and biological substances; Z79.899 Other long term (current) drug therapy; Z98.890 Other specified postprocedural states; Z90.49 Acquired absence of other specified parts of digestive tract